=== PATIENT | female | born 1990 | race American Indian/Alaskan Native ===

== ENCOUNTER 2017-04-19 21:06 | Emergency (ER) | payer MEDICAID ==
[2017-04-19 21:14] VITALS: BP 126/68
[2017-04-19] MEDS ORDERED: Clindamycin HCl 150 MG Cap PO ONE (21:34)
[2017-04-19] MEDS ORDERED: Acetaminophen/HYDROcodone 325-10 MG Tab PO ONE (21:34)
--- NOTE | 2017-04-19 21:38 | EDM.PDOC ---
ED HPI GENERAL MEDICAL PROBLEM - General Chief Complaint: ENT Problem Stated Complaint: TOOTH PAIN [id number] Time Seen by Provider: 04/19/17 21:35 Source of Information: Reports: Patient History Limitations: Reports: No Limitations - History of Present Illness INITIAL COMMENTS - FREE TEXT/NARRATIVE: 4 days h/o right lower tooth pain. Right Upper Tooth/Teeth Pain Score (Numeric/FACES): 8 - Related Data Allergies Allergy/AdvReac Type Severity Reaction Status Date / Time No Known Allergies Allergy Verified 10/11/16 19:22 Home Meds: Home Meds . 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[place] Psychiatric History: Reports: None Endocrine/Metabolic History: Reports: None Hematologic History: Reports: None 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 Immunologic History: Reports: None Oncologic (Cancer) History: Reports: None Dermatologic History: Reports: None - Infectious Disease History Infectious Disease History: Reports: None - Past Surgical History Head Surgeries/Procedures: Reports: None GI Surgical History: Reports: Cholecystectomy, Colonoscopy Female Surgical History: Reports: Section Musculoskeletal Surgical History: Reports: None Social & Family History - Family History Family Medical History: Noncontributory - Tobacco Use Smoking Status *Q: Current Every Day Smoker Years of Tobacco use: 6 Packs/Tins Daily: 0.1 Used Tobacco, but Quit: Yes Month Tobacco Last Used: 10/22 Second Hand Smoke Exposure: No - Caffeine Use Caffeine Use: Reports: Soda, Tea - Recreational Drug Use Recreational Drug Use: No - Sexual History Sexual History: Reports: Sexually Active - Living Situation & Occupation Living situation: Reports: , with Family Occupation: Employed ED ROS ENT - Review of Systems Review Of Systems: ROS reveals no pertinent complaints other than HPI. ED EXAM, ENT - Physical Exam Exam: See Below Exam Limited By: No Limitations General Appearance: Alert, WD/WN, Mild Distress, Other (crying) Ears: Hearing Grossly Normal Mouth/Throat: Dental Abcess, Dental Pain, Dental Tenderness Head: Atraumatic Neck: Non-Tender, Full Range of Motion Respiratory/Chest: No Respiratory Distress Cardiovascular: Regular Rate, Rhythm GI/Abdominal: Soft, Non-Tender Neurological: Alert, Oriented, Normal Cognition, Normal Gait, No Motor/Sensory Deficits Psychiatric: Tearful Skin: Warm, Dry Lymphatic: No Adenopathy Course - Vital Signs Last Recorded V/S: Last Vital Signs Temp 36.7 C 04/19/17 21:12 Pulse 66 04/19/17 21:12 Resp 16 04/19/17 21:12 BP 126/68 04/19/17 21:12 Pulse Ox 100 04/19/17 21:12 - Orders/Labs/Meds Orders: Active Orders 24 hr Category Date Time Status Acetaminophen/HYDROcodone [Dickens 325-10 MG] Med 04/19/17 21:34 Once 1 tab PO ONETIME ONE Clindamycin HCl [Cleocin] Med 04/19/17 21:34 Once 150 mg PO ONETIME ONE Departure - Departure Time of Disposition: 21:36 Disposition: Home, Self-Care 01 Condition: Good Clinical Impression: Dental caries, Dental abscess - Discharge Information Instructions: Dental Abscess, [id number] Forms: ED Department Discharge Additional Instructions: 1) avoid solid foods, sodas, lyn 2) see DENTIST rx given; clindamycin 150mg qid x 40 vicidin 5/325mg bid prn x 12 - My Orders Last 24 Hours: My Active Orders 04/19/17 21:34 Acetaminophen/HYDROcodone [Dickens 325-10 MG] 1 tab PO ONETIME ONE Clindamycin HCl [Cleocin] 150 mg PO ONETIME ONE - Assessment/Plan Last 24 Hours: My Active Orders 04/19/17 21:34 Acetaminophen/HYDROcodone [Dickens 325-10 MG] 1 tab PO ONETIME ONE Clindamycin HCl [Cleocin] 150 mg PO ONETIME ONE
== END 2017-04-19 21:49 | disposition home or self-care (01) ==
LOC: DL.ED 21:06
DX: K02.9 Dental caries, unspecified (principal); K04.7 Periapical abscess without sinus; F17.210 Nicotine dependence, cigarettes, uncomplicated; G43.909 Migraine, unspecified, not intractable, without status migrainosus; Z90.49 Acquired absence of other specified parts of digestive tract
CPT/HCPCS: 99282; A9270

== ENCOUNTER 2017-11-09 18:54 | Emergency (ER) | payer MEDICAID ==
[2017-11-09 19:14] VITALS: BP 124/69
[2017-11-09] MEDS ORDERED: Amoxicillin/Clavulanate K 500-125 MG Tab PO ONE (20:19)
--- NOTE | 2017-11-09 20:24 | EDM.PDOC ---
ED HPI GENERAL MEDICAL PROBLEM - General Chief Complaint: Headache Stated Complaint: NAUSATED,FEVER, [id number] Time Seen by Provider: 11/09/17 19:55 Source of Information: Reports: Patient History Limitations: Reports: No Limitations - History of Present Illness INITIAL COMMENTS - FREE TEXT/NARRATIVE: This 27 yo female patient reports to the ED with a 5 day history of a headache, nausea and a sore throat. The patient has not been seen by a provider and is not currently being treated. 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[place] Psychiatric History: Reports: None Endocrine/Metabolic History: Reports: None Hematologic History: Reports: None 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 Immunologic History: Reports: None Oncologic (Cancer) History: Reports: None Dermatologic History: Reports: None - Infectious Disease History Infectious Disease History: Reports: None - Past Surgical History Head Surgeries/Procedures: Reports: None GI Surgical History: Reports: Cholecystectomy, Colonoscopy Female Surgical History: Reports: Section Musculoskeletal Surgical History: Reports: None Social & Family History - Family History Family Medical History: Noncontributory - Tobacco Use Smoking Status *Q: Current Every Day Smoker Years of Tobacco use: 12 Packs/Tins Daily: 0.1 Used Tobacco, but Quit: Yes Month Tobacco Last Used: 10/22 Second Hand Smoke Exposure: Yes - Caffeine Use Caffeine Use: Reports: Soda, Tea - Recreational Drug Use Recreational Drug Use: No - Sexual History Sexual History: Reports: Sexually Active - Living Situation & Occupation Living situation: Reports: , with Family Occupation: Employed ED ROS GENERAL - Review of Systems Review Of Systems: ROS reveals no pertinent complaints other than HPI. ED EXAM, GENERAL - Physical Exam Exam: See Below Exam Limited By: No Limitations General Appearance: Alert, WD/WN, Mild Distress Eye Exam: Bilateral Eye: EOMI, Normal Inspection, PERRL Ears: Normal External Exam, Normal Canal, Hearing Grossly Normal, Normal TMs Nose: Normal Inspection, Normal Mucosa, No Blood Throat/Mouth: Normal Inspection, Normal Lips, Normal Teeth, Normal Gums, Normal Oropharynx, Normal Voice, No Airway Compromise Head: Atraumatic, Normocephalic Neck: Normal Inspection, Supple, Non-Tender, Full Range of Motion Respiratory/Chest: No Respiratory Distress, Lungs Clear, Normal Breath Sounds, No Accessory Muscle Use, Chest Non-Tender Cardiovascular: Normal Peripheral Pulses, Regular Rate, Rhythm, No Edema, No Gallop, No JVD, No Murmur, No Rub GI/Abdominal: Normal Bowel Sounds, Soft, Non-Tender, No Organomegaly, No Distention, No Abnormal Bruit, No Mass (Female) Exam: Deferred Rectal (Female) Exam: Deferred Back Exam: Normal Inspection, Full Range of Motion, NT Extremities: Normal Inspection, Normal Range of Motion, Non-Tender, Normal Capillary Refill, No Pedal Edema Neurological: Alert, Oriented, CN II-XII Intact, Normal Cognition, Normal Gait, Normal Reflexes, No Motor/Sensory Deficits Psychiatric: Normal Affect, Normal Mood Skin Exam: Warm, Dry, Intact, Normal Color, No Rash Lymphatic: No Adenopathy Course - Vital Signs Last Recorded V/S: Last Vital Signs Temp 37.4 C 11/09/17 19:11 Pulse 85 11/09/17 19:11 Resp 16 11/09/17 19:11 BP 124/69 11/09/17 19:11 Pulse Ox 98 11/09/17 19:11 - Orders/Labs/Meds Orders: Active Orders 24 hr Category Date Time Status CULTURE STREP A CONFIRMATION [] Stat Lab 11/09/17 19:03 Results STREP SCRN A RAPID W CULT CONF [] Stat Lab 11/09/17 19:03 Results Labs: Laboratory Tests 11/09/17 11/09/17 Range/Units 19:53 19:53 Urine Color Yellow (YELLOW) Urine Appearance Slightly cloudy (CLEAR) Urine pH 6.5 (5.0-9.0) Ur Specific Michael 1.025 (1.005-1.030) Urine Protein Negative (NEGATIVE) Urine Glucose (UA) Negative (NEGATIVE) Urine Ketones 15 H (NEGATIVE) Urine Occult Blood Negative (NEGATIVE) Urine Nitrite Negative (NEGATIVE) Urine Bilirubin Negative (NEGATIVE) Urine Urobilinogen 0.2 (0.2-1.0) mg/dL Ur Leukocyte Esterase Trace H (NEGATIVE) Urine RBC 0-5 /HPF Urine WBC 10-20 H (0-5/HPF) /HPF Ur Epithelial Cells Moderate H /HPF Urine Bacteria Many H (0-FEW/HPF) /HPF Urine Mucus Few H /LPF Urine HCG, Qual Negative Meds: Medications Discontinued Medications Generic Name Dose Route Start Last Admin Trade Name Freq PRN Reason Stop Dose Admin Amoxicillin/Clavulanate Potassium 1 tab 11/09/17 20:19 11/09/17 20:22 Augmentin 500 Mg\125 Mg PO 11/09/17 20:20 1 tab ONETIME ONE Administration Departure - Departure Time of Disposition: 20:22 Disposition: Home, Self-Care 01 Condition: Fair Clinical Impression: UTI (urinary tract infection) Qualifiers: Urinary tract infection type: site unspecified Hematuria presence: with hematuria Qualified Code(s): N39.0 - Urinary tract infection, site not specified - Discharge Information Instructions: Urinary Tract Infection, Adult Forms: ED Department Discharge Care Plan Goals: The patient was advised of the examination and lab results during the visit. The patient was given an oral dose of Augmentin (500/125) to take 1 by mouth 2 times per day for 10 days. The patient may take Tylenol (650 mg) every 8 hours or ibuprofen (400-800 mg) every 8 hours as needed for temporary symptom relief. If the patient has any additional symptoms or concerns, the patient should follow-up with her primary care facility or return to the emergency department. - My Orders Last 24 Hours: My Active Orders 11/09/17 19:03 CULTURE STREP A CONFIRMATION [RM] Stat STREP SCRN A RAPID W CULT CONF [RM] Stat - Assessment/Plan Last 24 Hours: My Active Orders 11/09/17 19:03 CULTURE STREP A CONFIRMATION [RM] Stat STREP SCRN A RAPID W CULT CONF [RM] Stat
== END 2017-11-09 20:26 | disposition home or self-care (01) ==
LOC: DL.ED 18:54
DX: N39.0 Urinary tract infection, site not specified (principal); F17.210 Nicotine dependence, cigarettes, uncomplicated
CPT/HCPCS: 81001; 81025; 87081; 87430; 87804; 99284; A9270

== ENCOUNTER 2019-02-03 05:58 | Inpatient (IN) | payer MEDICAID ==
[~2019-02-03 05:58] MED LIST: Lactated Ringers 1,000 ML IV SCH; Oxytocin/Normal Saline 30 UNIT/500 ML BAG IV SCH; Sodium Chloride 0.9% 10 ML Syringe FLUSH PRN; Tranexamic Acid 1,000 MG in Sodium Chloride 0.9% 100 ML IV PRN
[2019-02-03] MEDS: Lactated Ringers 1,000 ML IV SCH ×4 (06:38→18:24)
[2019-02-03] MEDS ORDERED: Oxytocin/Normal Saline 60 UNIT/1,000 ML BAG ONE (06:54)
[2019-02-03] MEDS ORDERED: ceFAZolin 2 GM in Premix Bag 1 BAG IV ONE (07:00)
[2019-02-03] MEDS: Citric Acid/Sodium Citrate Solution 30 ML Cup PO ONE ×2 (07:21)
[2019-02-03] MEDS ORDERED: Misoprostol 400 MCG (4 X 100 MCG TAB) RECTAL PRN (08:34)
[2019-02-03] MEDS ORDERED: Naloxone 2 MG/2 ML Syringe IVPUSH PRN (08:34)
[2019-02-03] MEDS ORDERED: diphenhydrAMINE 50 MG/ML SDV IVPUSH PRN (08:34)
[2019-02-03] MEDS ORDERED: Carboprost Tromethamine 250 MCG/1 ML Amp IM ONE (08:34)
[2019-02-03] MEDS ORDERED: Ondansetron 4 MG/2 ML SDV IV PRN (08:34)
[2019-02-03] MEDS ORDERED: ePHEDrine 50 MG/ML SDV IVPUSH PRN (08:34)
[2019-02-03] MEDS ORDERED: Methylergonovine 0.2 MG/1 ML Amp IM PRN (08:34)
[2019-02-03] MEDS ORDERED: Acetaminophen/oxyCODONE 325-5 MG Tab PO PRN (08:34)
[2019-02-03] MEDS ORDERED: Acetaminophen 325 MG Tab PO PRN (08:34)
[2019-02-03] MEDS ORDERED: Lactated Ringers 1,000 ML IV SCH (08:45)
[2019-02-03] MEDS: Citric Acid/Sodium Citrate Solution 30 ML Cup ONE ×2 (11:45→11:46)
[2019-02-03] MEDS: Simethicone 80 MG Tab.Chew PO SCH ×4 (11:51→21:01)
[2019-02-03] MEDS: Prenatal Multivitamin with Calcium/Folic Acid/Iron Tab PO SCH (11:51)
[2019-02-03] MEDS: Ketorolac 30 MG/ML SDV IVPUSH SCH ×2 (14:14→20:03)
--- NOTE | 2019-02-03 15:04 | OR ---
DATE: 02/03/2019 PREOPERATIVE DIAGNOSES: 1. Intrauterine at 39-3/7th weeks by 11-6/7th weeks' ultrasound. 2. Previous section x2, requests repeat low-transverse section. 3. Group B streptococcus negative. 4. 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 5. No known drug allergies. 6. G4, P2-0-1-2. POSTOPERATIVE DIAGNOSES: 1. Intrauterine at 39-3/7th weeks by 11-6/7th weeks' ultrasound, delivered. 2. Previous section x2, requests repeat low-transverse section. 3. Group B streptococcus negative. 4. 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 5. No known drug allergies. 6. G4, P2-0-1-2. 7. Meconium-stained fluid. PROCEDURE PERFORMED: Non-stress test followed by repeat low-transverse section. ASSISTANTS: 1. Rose Pérez MD. 2. Sebas Swenson MS-III. ANESTHESIA: Spinal. ESTIMATED BLOOD LOSS: 500 mL. IV FLUIDS: 1800 mL. URINE OUTPUT: 400 mL and clear. START: 7:51. UTERINE INCISION: 7:55. DELIVERY: 7:56. STOP: 8:23. FINDINGS: Male, scores 9 and 9, weight pending. DESCRIPTION OF PROCEDURE IN DETAIL: After proper consent was obtained, the patient was brought to the operating room where spinal anesthetic was administered. Vega was placed in preop under sterile conditions. Abdomen was prepped and draped in a normal sterile fashion with the patient placed in supine position with left lateral tilt. A skin incision was then made over the lower abdomen in a transverse Pfannenstiel-type fashion over previous scar and this was carried down to the fascia and scored in the midline. Subcutaneous tissue was raked laterally with James traction, and fascial incision was extended in a transverse fashion using curved Oleary's. Jason clamps x2 were used to grasp the superior aspect of the fascia and the rectus muscles were dissected from the fascia using sharp and blunt technique. In a similar fashion, Jason clamps x2 were used to grasp the inferior portion of the incision and rectus and pyramidalis muscles were dissected from the fascia using sharp and blunt technique. Rectus muscles were in the midline with blunt technique. Abdominal cavity was entered in a blunt technique and the incision was extended superiorly and inferiorly with blunt technique. Sebas O large retractor was then introduced and used. Vesicouterine peritoneum was identified and incised in a transverse fashion with Metzenbaum scissors. Bladder flap was made digitally. A curvilinear incision was made on the lower uterine segment at 0755 hours. Uterus was entered sharply. Uterine incision was then extended in a transverse fashion using blunt technique. Bulging bag of water was noted and ruptured with Allis clamps and meconium-stained fluid was noted. Subsequently, vertex was delivered through the incision followed by rest of the without difficulty. Mouth and nares suctioned. Cord was doubly clamped and cut, and infant was brought over to team. Then, approximately 10 mL of cord blood was obtained for labs. Placenta was then delivered with gentle cord traction and fundal massage. Uterine cavity was cleared of all blood clots and debris with lap sponge. Guevara clamps were used to grasp the uterine incision, and this was closed in a running locked fashion and tied at lateral margins with 1-0 Vicryl. To the right of midline, there was some bleeding. A ypjuzk-hk-cntrm stitch was applied and hemostasis was reassured over this area. Left lateral portion of the incision did reveal a hematoma inferior to the incision that did have some minimal bleeding and was able to be localized onto the surface of the uterus and a wtfucw-el-foepw stitch was applied over this area using 3-0 Vicryl. Hemostasis was reassured over this area and hematoma did not enlarge thereafter. First inspection of the uterine incision revealed hemostasis. Sebas O retractor was then removed and paracolic gutters were cleared of all blood clots and debris with lap sponge. Anterior cul-de-sac was irrigated copiously, and all blood clots and debris were removed. Right of midline, there was minimal bleeding and 1 nftlxj-fk-fvyim stitch was applied and hemostasis was reassured. Left lateral portion of the incision and hematoma were evaluated, not enlarging and stable without any bleeding. Second and final inspection of the uterine incision and anterior cul-de-sac revealed hemostasis. Rectus muscles were then reapproximated in the midline with njktdc-xn-ltlcq stitch using 1-0 Vicryl. Subfascial tissues were found to be hemostatic. Fascia was closed in a running fashion and tied at lateral margins with 0 looped PDS. Subcutaneous tissue was irrigated copiously. Hemostasis was reassured. Skin was reapproximated with farooq. Sterile Aquacel dressing was applied. The uterine fundus was firm and massaged at the conclusion of this case -2 below umbilicus. No immediate complications were noted. Sponge, lap, and needle counts were correct. The patient received 2 g of Ancef preoperatively, Pitocin per protocol, and will receive Toradol at the conclusion of case for pain control. Mother and infant are currently stable at the time of dictation. [facility] /[id number]
[2019-02-03] MEDS ORDERED: Dexamethasone 4 MG/ML SDV IV ONE (15:58)
[2019-02-03] MEDS ORDERED: ePHEDrine 50 MG/ML SDV IV ONE (15:58)
[2019-02-03] MEDS ORDERED: Ondansetron 4 MG/2 ML SDV IV ONE (15:58)
[2019-02-03] MEDS ORDERED: Lactated Ringers 1,000 ML IV ONE (15:58)
[2019-02-03] MEDS ORDERED: Ketorolac 30 MG/ML SDV IVPUSH ONE (15:58)
[2019-02-03] MEDS ORDERED: Morphine PF 1 MG/ML Amp ONE (15:58)
[2019-02-03] MEDS: Docusate Sodium 100 MG Cap PO PRN (21:00)
[2019-02-04] MEDS: Acetaminophen/oxyCODONE 325-5 MG Tab PO PRN ×5 (01:58→21:59)
[2019-02-04] MEDS: Ketorolac 30 MG/ML SDV IVPUSH SCH (01:58)
--- NOTE | 2019-02-04 08:29 | PN ---
DATE: 02/04/2019 Postoperative day 1. SUBJECTIVE: The patient is tolerating p.o., ambulating and passing flatus. Vega was just removed this morning, and she was able to urinate upon removal. She endorses a minimal amount of bleeding and no contraction like pain. She does have some incisional pain and that pain is significantly decreased with her Percocet. She denies any fever, shortness of breath, chest pains, visual changes, or headaches. OBJECTIVE: Vital Signs: Temperature 99, pulse 85, blood pressure 111/58, and respiratory rate 16, O2 saturation 98%. Lungs: Clear to auscultation bilaterally. Heart: S1 and S2. Regular rate and rhythm. Abdomen: Firm uterus, negative 2 below umbilicus. Aquacel dressing is clean and dry. Nothing saturating. Extremities: Compression stockings are on, no swelling. LABORATORY DATA: Red blood cells 3.91, down from 4.96 on admission; hemoglobin 11.3, down from 14.3 on admission; hematocrit 34.6, down from 42.8 on admission; platelets 178, down from 203 on admission. ASSESSMENT AND PLAN: 1. Postop day 1 status post repeat low-transverse section. 2. Continue with routine cares. The patient was seen by myself and Dr. Redmond. Assessment and plan are under the advisement of Dr. Redmond. seen and agreed-KATHRYN Swenson MS-III [facility] /[id number] MTDD
--- NOTE | 2019-02-04 11:02 | OBOUT ---
DATE: 02/03/2019 TIME OF NST: 6:30 to 6:50. REASON FOR NST: 1. Intrauterine at 39-plus weeks. 2. Previous section x2, requests repeat low-transverse section. 3. GBS negative. 4. 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 5. No known drug allergies. 6. G4, P2-0-1-2. NST INTERPRETATION: During this time period, heart tone baseline is approximately at 135 and there are at least two 15 x 15 beats per minute accelerations, making this strip reactive. It is also noted to be reassuring. Tocometer reveals potential 4 to 5 contractions felt by the patient, described as cramping. ASSESSMENT: 1. Nonstress test - reactive, reassuring. 2. Tocometer with contractions. PLAN: Blood pressure is 118/71, heart rate 88, temperature 98.3. Please see H and P to be updated and placed in Epic in the chart. Changes include her having contractions now described as cramps felt in the lower abdomen. Her vital signs as above and the nonstress test as above. Otherwise, history and physical done in conjunction with RAJENDRA EckertIII, seen and agreed. Review of systems was, otherwise, fully reviewed and felt to be noncontributory other than the above as well as records were called for, reviewed, and supplemented by the patient's history in regard to her history and physical. We will proceed to the OR as soon as the crew is ready and available. [facility] /[id number]
[2019-02-04] MEDS: Simethicone 80 MG Tab.Chew PO SCH ×4 (11:17→21:58)
[2019-02-04] MEDS: Prenatal Multivitamin with Calcium/Folic Acid/Iron Tab PO SCH (11:17)
[2019-02-04] MEDS: Ibuprofen 800 MG Tab PO PRN ×2 (11:18→19:49)
[2019-02-04] MEDS: Docusate Sodium 100 MG Cap PO PRN ×2 (11:18→19:49)
[2019-02-05] MEDS: Acetaminophen/oxyCODONE 325-5 MG Tab PO PRN ×5 (02:32→21:21)
[2019-02-05] MEDS: Ibuprofen 800 MG Tab PO PRN ×2 (05:19→17:17)
[2019-02-05] MEDS: Prenatal Multivitamin with Calcium/Folic Acid/Iron Tab PO SCH (08:20)
[2019-02-05] MEDS: Docusate Sodium 100 MG Cap PO PRN ×2 (08:20→21:20)
[2019-02-05] MEDS: Simethicone 80 MG Tab.Chew PO SCH ×4 (08:21→21:20)
--- NOTE | 2019-02-05 10:57 | PN ---
DATE: 02/05/2019 Postoperative day #2. SUBJECTIVE: The patient is tolerating p.o., ambulating, and passing flatus. She is also urinating. She has not had a bowel movement. She endorses a minimal amount of bleeding. She is having incisional pain. It is decreased with her Percocet. She denies any fever, shortness of breath, chest pain, visual changes, or headaches. OBJECTIVE: Vital Signs: Temperature 98.1, pulse 79, blood pressure 115/59, and respiratory rate 16. Lungs: Clear to auscultation bilaterally. Heart: S1 and S2. Regular rate and rhythm. Abdomen: Firm. Uterus negative 2 below the umbilicus. Aquacel dressing is clean and dry, nothing saturating. Extremities: No swelling. LABORATORY DATA: RBC 3.96, hemoglobin 11.6, hematocrit 35.5, platelets 189. ASSESSMENT AND PLAN: 1. Postoperative day #2 status post repeat low-transverse . 2. Continue with routine cares. The patient was seen by myself and Dr. Redmond. Assessment and plan are under advisement of Dr. Redmond. seen and agreed-WEIW Sebas Swenson, MS-III [facility] /[id number] ROHAN
[2019-02-06] MEDS: Ibuprofen 800 MG Tab PO PRN (02:11)
[2019-02-06] MEDS: Acetaminophen/oxyCODONE 325-5 MG Tab PO PRN ×2 (02:11→06:31)
[2019-02-06] MEDS: Prenatal Multivitamin with Calcium/Folic Acid/Iron Tab PO SCH (08:20)
[2019-02-06] MEDS: Simethicone 80 MG Tab.Chew PO SCH (08:21)
[2019-02-06] MEDS: Docusate Sodium 100 MG Cap PO PRN (08:21)
--- NOTE | 2019-02-06 09:02 | PN ---
DATE: 02/06/2019 Postop day 3. SUBJECTIVE: The patient is tolerating p.o., ambulating, and passing flatus. Urinating. She has not had a bowel movement. Endorses minimal bleeding. Incisional pain was well managed with Percocet and Tylenol. Denies any fevers, shortness of breath, chest pain, visual changes, or headaches. OBJECTIVE: Vital Signs: Temperature 98, pulse 85, blood pressure 117/66, and respiratory rate 16. Lungs: Clear to auscultation bilaterally. Heart: S1 and S2. Regular rate and rhythm. Abdomen: Firm uterus, 2 below umbilicus. Aquacel dressing clean, dry, nothing saturating. Extremities: No swelling. Skin: Contact dermatitis near umbilicus. The patient says it is from the hospital underwear. LABORATORY DATA: No new labs taken. See [facility] for labs over hospital course. ASSESSMENT AND PLAN: 1. Postoperative day 3 status post repeat low-transverse . 2. Planning on discharge today. The patient was seen by myself and Dr. Redmond. Assessment and plan are under advisement of Dr. Redmond. seen and agreed-WEIW Sebas Swenson, MS-III [facility] /[id number] ROHAN
[2019-02-06 09:17] VITALS: BP 122/71
--- NOTE | 2019-02-06 10:26 | DISCH ---
ADMITTING DIAGNOSES: 1. Intrauterine at 39 and 3/7th weeks by 11 and 6/7th weeks ultrasound. 2. Previous x2, requests repeat low transverse section. 3. Group B streptococcus negative. 4. 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 5. No known drug allergies. 6. G4, P2-0-1-2. DISCHARGE DIAGNOSES: 1. Intrauterine at 39 and 3/7th weeks by 11 and 6/7th weeks ultrasound - delivered. 2. Previous x2, requests repeat low transverse section. 3. Group B streptococcus negative. 4. 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 5. No known drug allergies. 6. G4, P2-0-1-2. 7. Meconium-stained fluid. 8. Anemia of acute blood loss, hemoglobin dropping from 14.3 to 11.6. PROCEDURE PERFORMED: NST, followed by repeat low transverse section on date of admission per Dr. Redmond. HISTORY OF PRESENT ILLNESS: Please see H and P. SUMMARY OF HOSPITAL COURSE: The patient was admitted on the above date with the above diagnoses, underwent repeat low transverse under spinal with an EBL 500 mL yielding a male with scores of 9 and 9, weighing 7 pounds 8 ounces. Please see operative note for further details. Postoperative days #1 and 2, please see progress notes done in conjunction with RAKEL Eckert. Postoperative day #3, date of discharge, please see RAKEL Eckert, note seen and agreed. CONDITION ON DISCHARGE COMPARED TO CONDITION ON ADMISSION: Improved. DISCHARGE INSTRUCTIONS: 1. Diet as tolerated. 2. Activity: No lifting more than 20 pounds. No sit-ups, straining, and pelvic rest for the next 6 weeks with immediate return to fertility discussed with the patient. 3. Reasons to return or go to the emergency room were discussed with the patient in detail including, but not limited to, temperature greater than 100.4, foul-smelling discharge, red hot tender breasts, increased vaginal bleeding or increasing pain, drainage, or redness around the incision. DISCHARGE MEDICATIONS: 1. Sjbd-vwi-fvvdlgh Tylenol or ibuprofen for pain. 2. vitamins x6 weeks. 3. Percocet 5/325 one to two q.6 hours p.r.n., #15, no refills. Discussed the use of this medication, adverse and unwanted effects, as well as precautions with driving. FOLLOWUP: Follow up on 02/10/2019, with her baby and for staple removal. The patient understands and agrees with the above treatment plan. I did discuss with her reasons to return or go to the emergency room in regard to her infant as well as ramifications of not following up. [facility] /[id number]
== END 2019-02-06 10:00 | disposition home or self-care (01) | DRG 787 ==
LOC: DL.OB 05:58 → OBSVTOIN 07:56 → EEVIPCON 08:00
PROVIDERS: ADMIT Family Medicine; ATTEND Family Medicine
PROC: 10D00Z1 Extraction of Products of Conception, Low, Open Approach (ICD-10-PCS; principal; 2019-02-03)
PROC: 4A1HXCZ Monitoring of Products of Conception, Cardiac Rate, External Approach (ICD-10-PCS; 2019-02-03)
DX: O34.211 Maternal care for low transverse scar from previous cesarean delivery (principal); D62 Acute posthemorrhagic anemia; O77.0 Labor and delivery complicated by meconium in amniotic fluid; O90.81 Anemia of the puerperium; Z3A.39 39 weeks gestation of pregnancy; Z37.0 Single live birth
CPT/HCPCS: 36415; 51702; 85025; 86850; 86900; 86901; 94010; A9270-GY; J0690; J1100; J1885; J2274; J2405; J2590; J7120

== ENCOUNTER 2019-03-21 11:34 | Emergency (ER) | payer MEDICAID ==
[2019-03-21] MEDS ORDERED: Lactated Ringers 1,000 ML IV ONE (12:15)
[2019-03-21] MEDS ORDERED: Sodium Chloride 0.9% 10 ML Syringe FLUSH PRN (12:15)
[2019-03-21] MEDS ORDERED: Ondansetron 4 MG/2 ML SDV IV ONE (12:15)
[2019-03-21] MEDS ORDERED: Famotidine 20 MG/2 ML SDV IVPUSH ONE (12:48)
[2019-03-21 13:13] LABS: ANION GAP 17.7; CHLORIDE,CL 102 mmol/L (101-111); SODIUM,NA 134 mmol/L (135-145)
[2019-03-21] MEDS ORDERED: Iopamidol 612 MG/ML 75 ML Bottle IVPUSH ONE (13:18)
[2019-03-21] MEDS ORDERED: HYDROmorphone 1 MG/ML Syringe IVPUSH ONE (13:19)
[2019-03-21 14:25] VITALS: BP 114/57
--- NOTE | 2019-03-21 17:40 | EDM.PDOC ---
Scribed by Maye Wei 03/21/19 1502 for Radha Najera NP ED HPI GENERAL MEDICAL PROBLEM - General Chief Complaint: Abdominal Pain Stated Complaint: ABD PAIN [id number] Time Seen by Provider: 03/21/19 12:39 Source of Information: Reports: Patient, RN, RN Notes Reviewed History Limitations: Reports: No Limitations - History of Present Illness INITIAL COMMENTS - FREE TEXT/NARRATIVE: Patient presents to ER with complaint of sharp stomach/epigastric pain. She has had nausea, vomiting and diarrhea x2 days. She last ate last night. She had gallbladder out x2 years ago. She tool Tylenol without help. States no chances of . LMP was last week. She still has her appendix. She has had chills. No fever. Rates her pain 8/10. Onset: Gradual Duration: Getting Worse Location: Reports: Abdomen Quality: Reports: Ache Severity: Moderate Improves with: Reports: None Worsens with: Reports: None Associated Symptoms: Reports: No Other Symptoms Epigastric Pain Score (Numeric/FACES): 7 - Related Data Allergies Allergy/AdvReac Type Severity Reaction Status Date / Time No Known Allergies Allergy Verified 03/21/19 12:10 Home Meds: Home Meds #103/Iron Fumarate/Fa [ ] 1 tab PO DAILY 02/02/19 [ History] Acetaminophen [Tylenol] 650 mg PO Q6HR PRN tablet 02/06/19 [Rx] Docusate Sodium [Colace] 100 mg PO Q12HR PRN cap 02/06/19 [Rx] Ibuprofen [Motrin] 800 mg PO Q8H PRN tablet 02/06/19 [Rx] Vit with Ca/FA/Iron [ Plus Iron] 1 each PO DAILY tablet [Rx] Past Medical History - Past Health History Medical/Surgical History: Denies Medical/Surgical History HEENT History: Reports: None Cardiovascular History: Reports: None Respiratory History: Reports: None Gastrointestinal History: Reports: Cholelithiasis Genitourinary History: Reports: UTI, Recurrent 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: Musculoskeletal History: Reports: None Neurological History: Reports: Migraines 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[place] Psychiatric History: Reports: None Endocrine/Metabolic History: Reports: None Hematologic History: Reports: None 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 Immunologic History: Reports: None Oncologic (Cancer) History: Reports: None Dermatologic History: Reports: None - Infectious Disease History Infectious Disease History: Reports: None - Past Surgical History Head Surgeries/Procedures: Reports: None GI Surgical History: Reports: Cholecystectomy, Colonoscopy Female Surgical History: Reports: Section Musculoskeletal Surgical History: Reports: None Social & Family History - Family History Family Medical History: Noncontributory - Tobacco Use Smoking Status *Q: Never Smoker - Caffeine Use Caffeine Use: Reports: Coffee - Recreational Drug Use Recreational Drug Use: No - Sexual History Sexual History: Reports: Sexually Active - Living Situation & Occupation Living situation: Reports: , with Family Occupation: Employed ED ROS GENERAL - Review of Systems Review Of Systems: ROS reveals no pertinent complaints other than HPI. ED EXAM, GI/ABD - Physical Exam Exam: See Below Exam Limited By: No Limitations General Appearance: Anxious (and crying) Eyes: Bilateral: Normal Appearance Ears: Normal External Exam, Normal Canal, Hearing Grossly Normal, Normal TMs Nose: Normal Inspection, Normal Mucosa, No Blood Throat/Mouth: Normal Inspection, Normal Lips, Normal Teeth, Normal Gums, Normal Oropharynx, Normal Voice, No Airway Compromise Head: Atraumatic, Normocephalic Neck: Normal Inspection, Supple, Non-Tender, Full Range of Motion Respiratory/Chest: No Respiratory Distress, Lungs Clear, Normal Breath Sounds, No Accessory Muscle Use, Chest Non-Tender Cardiovascular: Normal Peripheral Pulses, Regular Rate, Rhythm, No Edema, No Gallop, No JVD, No Murmur, No Rub GI/Abdominal Exam: Normal Bowel Sounds, Soft, Non-Tender, No Organomegaly, No Distention, No Abnormal Bruit, No Mass, Pelvis Stable (Female) Exam: Deferred Rectal (Female) Exam: Deferred Back Exam: Normal Inspection, Full Range of Motion, NT Extremities: Normal Inspection, Normal Range of Motion, Non-Tender, Normal Capillary Refill, No Pedal Edema Neurological: Alert, Oriented, CN II-XII Intact, Normal Cognition, Normal Gait, Normal Reflexes, No Motor/Sensory Deficits Psychiatric: Anxious (and crying) Skin Exam: Warm, Dry, Intact, Normal Color, No Rash Lymphatic: No Adenopathy Course - Vital Signs Last Recorded V/S: Last Vital Signs Temp 97.2 F 03/21/19 12:10 Pulse 75 03/21/19 14:24 Resp 16 03/21/19 14:24 BP 114/57 L 03/21/19 14:24 Pulse Ox 100 03/21/19 14:24 - Orders/Labs/Meds Orders: Active Orders 24 hr Category Date Time Status Peripheral IV Care [RC] . DIRECTED Care 03/21/19 12:15 Active Sodium Chloride 0.9% [Saline Flush] Med 03/21/19 12:15 Active 10 ml FLUSH ASDIRECTED PRN Peripheral IV Insertion Adult [OM.PC] Stat Oth 03/21/19 12:15 Ordered Medication Orders Sodium Chloride (Saline Flush) 10 ml FLUSH ASDIRECTED PRN PRN Reason: Keep Vein Open Last Admin: 03/21/19 12:25 Dose: 10 ml Labs: Laboratory Tests 03/21/19 03/21/19 03/21/19 Range/Units 12:22 12:22 12:55 WBC 12.4 H (5.0-10.0) 10^3/uL RBC 5.30 (4.2-5.4) 10^6/uL Hgb 15.6 D (12.0-16.0) g/dL Hct 45.3 (37.0-47.0) % MCV 85.5 D (80-100) fL MCH 29.4 (27.0-34.0) pg MCHC 34.4 (33.0-35.0) g/dL Plt Count 331 D (150-450) 10^3/uL Neut % (Auto) 72.5 (42.2-75.2) % Lymph % (Auto) 20.1 L (20.5-50.1) % [place] % (Auto) 5.2 (2-8) % Eos % (Auto) 2.0 (1.0-3.0) % Baso % (Auto) 0.2 (0.0-1.0) % Sodium 134 L (135-145) mmol/L Potassium 4.7 D (3.6-5.0) mmol/L Chloride 102 (101-111) mmol/L Carbon Dioxide 19.0 L (21.0-31.0) mmol/L Anion Gap 17.7 BUN 14 (7-18) mg/dL Creatinine 0.7 (0.6-1.3) mg/dL Est Cr Clr Drug Dosing 100.74 mL/min Estimated GFR (MDRD) > 60 BUN/Creatinine Ratio 20.00 Glucose 98 (74-105) mg/dL Calcium 9.5 (8.4-10.2) mg/dl Total Bilirubin 1.2 H (0.2-1.0) mg/dL AST 79 H (10-42) IU/L ALT 55 (10-60) IU/L Alkaline Phosphatase 106 (42-121) IU/L Total Protein 9.0 H (6.7-8.2) g/dl Albumin 4.8 (3.2-5.5) g/dl Globulin 4.2 Albumin/Globulin Ratio 1.14 Amylase 73 (28-100) U/L Lipase 31 (22-51) U/L Urine Color Yellow (YELLOW) Urine Appearance Cloudy (CLEAR) Urine pH 5.0 (5.0-9.0) Ur Specific [place] 1.015 (1.005-1.030) Urine Protein Trace H (NEGATIVE) Urine Glucose (UA) Negative (NEGATIVE) Urine Ketones Negative (NEGATIVE) Urine Occult Blood Negative (NEGATIVE) Urine Nitrite Negative (NEGATIVE) Urine Bilirubin Negative (NEGATIVE) Urine Urobilinogen 0.2 (0.2-1.0) mg/dL Ur Leukocyte Esterase Negative (NEGATIVE) Urine RBC 0-5 /HPF Urine WBC 0-5 (0-5/HPF) /HPF Ur Epithelial Cells Many H (NOT SEEN) /HPF Amorphous Sediment Few (NOT SEEN) /HPF Urine Bacteria Rare (0-FEW/HPF) /HPF Urine Mucus Moderate H (NOT SEEN) /LPF Urine HCG, Qual 03/21/19 Range/Units 12:55 WBC (5.0-10.0) 10^3/uL RBC (4.2-5.4) 10^6/uL Hgb (12.0-16.0) g/dL Hct (37.0-47.0) % MCV (80-100) fL MCH (27.0-34.0) pg MCHC (33.0-35.0) g/dL Plt Count (150-450) 10^3/uL Neut % (Auto) (42.2-75.2) % Lymph % (Auto) (20.5-50.1) % [place] % (Auto) (2-8) % Eos % (Auto) (1.0-3.0) % Baso % (Auto) (0.0-1.0) % Sodium (135-145) mmol/L Potassium (3.6-5.0) mmol/L Chloride (101-111) mmol/L Carbon Dioxide (21.0-31.0) mmol/L Anion Gap BUN (7-18) mg/dL Creatinine (0.6-1.3) mg/dL Est Cr Clr Drug Dosing mL/min Estimated GFR (MDRD) BUN/Creatinine Ratio Glucose (74-105) mg/dL Calcium (8.4-10.2) mg/dl Total Bilirubin (0.2-1.0) mg/dL AST (10-42) IU/L ALT (10-60) IU/L Alkaline Phosphatase (42-121) IU/L Total Protein (6.7-8.2) g/dl Albumin (3.2-5.5) g/dl Globulin Albumin/Globulin Ratio Amylase (28-100) U/L Lipase (22-51) U/L Urine Color (YELLOW) Urine Appearance (CLEAR) Urine pH (5.0-9.0) Ur Specific [place] (1.005-1.030) Urine Protein (NEGATIVE) Urine Glucose (UA) (NEGATIVE) Urine Ketones (NEGATIVE) Urine Occult Blood (NEGATIVE) Urine Nitrite (NEGATIVE) Urine Bilirubin (NEGATIVE) Urine Urobilinogen (0.2-1.0) mg/dL Ur Leukocyte Esterase (NEGATIVE) Urine RBC /HPF Urine WBC (0-5/HPF) /HPF Ur Epithelial Cells (NOT SEEN) /HPF Amorphous Sediment (NOT SEEN) /HPF Urine Bacteria (0-FEW/HPF) /HPF Urine Mucus (NOT SEEN) /LPF Urine HCG, Qual Negative Meds: Medications Generic Name Dose Route Start Last Admin Trade Name Freq PRN Reason Stop Dose Admin Sodium Chloride 10 ml 03/21/19 12:15 03/21/19 12:25 Saline Flush FLUSH 10 ml ASDIRECTED PRN Administration Keep Vein Open Discontinued Medications Generic Name Dose Route Start Last Admin Trade Name Freq PRN Reason Stop Dose Admin Famotidine 20 mg 03/21/19 12:48 03/21/19 12:52 Pepcid IVPUSH 03/21/19 12:49 20 mg ONETIME ONE Administration Hydromorphone HCl 1 mg 03/21/19 13:19 03/21/19 13:23 Dilaudid IVPUSH 03/21/19 13:20 1 mg ONETIME ONE Administration Lactated Ringer's 1,000 mls @ 999 mls/hr 03/21/19 12:15 03/21/19 12:25 Ringers, Lactated IV 03/21/19 13:15 999 mls/hr .BOLUS ONE Administration Iopamidol 75 ml 03/21/19 13:18 03/21/19 13:32 Isovue-300 (61%) IVPUSH 03/21/19 13:19 75 ml ONETIME ONE Administration Ondansetron HCl 4 mg 03/21/19 12:15 03/21/19 12:25 Zofran IV 03/21/19 12:16 4 mg ONETIME ONE Administration - Radiology Interpretation Free Text/Narrative:: CT of Abdomen/Pelvis with contrast: FINDINGS: ABDOMEN: Liver: Normal. No mass. Gallbladder and bile ducts: The patient is noted to be status post cholecystectomy. Pancreas: Normal. No ductal dilation. Spleen: Normal. No splenomegaly. Adrenals: Normal. No mass. Kidneys and ureters: A 3 mm nonobstructing stone is noted within each kidney. No stones are identified along the course of either ureter. There is no evidence of hydronephrosis or ureter. Stomach and bowel: Liquefied stool contents are noted throughout the ascending, transverse and descending colon, without significant associated colonic wall thickening or pericolonic fat stranding. There is no evidence of bowel obstruction. Appendix: The appendix is normal in appearance. PELVIS: Bladder: Unremarkable as visualized. Reproductive: Unremarkable as visualized. ABDOMEN and PELVIS: Intraperitoneal space: Normal. No free air. No significant fluid collection. Bones/joints: No acute fracture. No dislocation. Soft tissues: Postoperative changes are noted in the anterior pelvic wall. Vasculature: Normal. No abdominal aortic aneurysm. Lymph nodes: Normal. No enlarged lymph nodes. IMPRESSION: 1. No acute findings. 2. Liquefied stool contents are noted throughout the colon without significant associated pericolonic inflammatory changes. 3. Bilateral nonobstructing renal calculi. No evidence of ureteral calculi or hydronephrosis. See rad report Departure - Departure Time of Disposition: 15:02 Disposition: Home, Self-Care 01 Condition: Fair Clinical Impression: Gastroenteritis Abdominal pain Qualifiers: Abdominal location: upper abdomen, unspecified Qualified Code(s): R10.10 - Upper abdominal pain, unspecified - Discharge Information *PRESCRIPTION DRUG MONITORING PROGRAM REVIEWED*: No *COPY OF PRESCRIPTION DRUG MONITORING REPORT IN PATIENT CINDY: No Instructions: Viral Gastroenteritis, Adult, [id number], Abdominal Pain, Adult , [id number], Nausea and Vomiting, Adult, [id number], Food Choices to Help Relieve Diarrhea, Adult Forms: ED Department Discharge Additional Instructions: Try to drink plenty of fluids, small sips frequently May use Imodium (Loperamide) over the counter as directed for diarrhea Follow up with your primary care facility if no improvement - My Orders Last 24 Hours: My Active Orders 03/21/19 12:15 Peripheral IV Care [RC] . DIRECTED Sodium Chloride 0.9% [Saline Flush] 10 ml FLUSH ASDIRECTED PRN Peripheral IV Insertion Adult [OM.PC] Stat - Assessment/Plan Last 24 Hours: My Active Orders 03/21/19 12:15 Peripheral IV Care [RC] . DIRECTED Sodium Chloride 0.9% [Saline Flush] 10 ml FLUSH ASDIRECTED PRN Peripheral IV Insertion Adult [OM.PC] Stat I have read and agree with the documentation that has been completed regarding this visit. By signing this record, I attest that the documentation was completed in my physical presence and is an accurate record of the encounter.
== END 2019-03-21 15:09 | disposition home or self-care (01) ==
LOC: DL.ED 11:34
DX: K52.9 Noninfective gastroenteritis and colitis, unspecified (principal); Z90.49 Acquired absence of other specified parts of digestive tract
CPT/HCPCS: 36415; 74177; 80053; 81001; 81025; 82150; 83690; 85025; 96361; 96374; 96375; 99284; J1170; J2405; J3490; J7120; Q9967

== ENCOUNTER 2019-10-03 07:30 | Emergency (ER) | payer MEDICAID, OTHER ==
--- NOTE | 2019-10-03 07:45 | EDM.PDOC ---
ED HPI GENERAL MEDICAL PROBLEM - General Chief Complaint: Abdominal Pain Stated Complaint: THROWING UP/STOMACH PAINS Time Seen by Provider: 10/03/19 07:45 Source of Information: Reports: Patient, RN, RN Notes Reviewed History Limitations: Reports: No Limitations - History of Present Illness INITIAL COMMENTS - FREE TEXT/NARRATIVE: patient presents to ER with complaint of sharp epigastric pain. Patient states she has had vomiting and diarrhea for the past 2 days. Patient states this morning after she vomited she started having a very sharp pain in the stomach. Patient states gallbladder has been removed. Admits to chills and fever, nausea , vomiting, diarrhea. Denies chest pains or shortness of breath. States LMP was 1 week ago, denies chances of . Onset: Gradual Duration: Constant, Getting Worse Location: Reports: Abdomen Epigastric Pain Score (Numeric/FACES): 7 - Related Data Allergies Allergy/AdvReac Type Severity Reaction Status Date / Time No Known Allergies Allergy Verified 10/03/19 07:37 Home Meds: Home Meds . 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[place] Psychiatric History: Reports: None Endocrine/Metabolic History: Reports: None Hematologic History: Reports: None 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 Immunologic History: Reports: None Oncologic (Cancer) History: Reports: None Dermatologic History: Reports: None - Infectious Disease History Infectious Disease History: Reports: None - Past Surgical History Head Surgeries/Procedures: Reports: None GI Surgical History: Reports: Cholecystectomy, Colonoscopy Female Surgical History: Reports: Section Musculoskeletal Surgical History: Reports: None Social & Family History - Family History Family Medical History: Noncontributory - Tobacco Use Smoking Status *Q: Never Smoker Second Hand Smoke Exposure: No - Caffeine Use Caffeine Use: Reports: Coffee - Recreational Drug Use Recreational Drug Use: No - Sexual History Sexual History: Reports: Sexually Active - Living Situation & Occupation Living situation: Reports: , with Family Occupation: Employed ED ROS GENERAL - Review of Systems Review Of Systems: Comprehensive ROS is negative, except as noted in HPI. ED EXAM, GI/ABD - Physical Exam Exam: See Below Exam Limited By: No Limitations General Appearance: Alert, WD/WN, Moderate Distress Eyes: Bilateral: Normal Appearance, EOMI Ears: Normal External Exam, Hearing Grossly Normal Nose: Normal Inspection Throat/Mouth: Normal Inspection, Normal Voice, No Airway Compromise Head: Atraumatic, Normocephalic Neck: Normal Inspection, Supple, Non-Tender, Full Range of Motion Respiratory/Chest: No Respiratory Distress, Lungs Clear, Normal Breath Sounds, No Accessory Muscle Use, Chest Non-Tender Cardiovascular: Normal Peripheral Pulses, Regular Rate, Rhythm, No Edema, No Gallop, No JVD, No Murmur, No Rub GI/Abdominal Exam: Normal Bowel Sounds, No Organomegaly, No Distention, No Abnormal Bruit, No Mass, Pelvis Stable, Tender (epigastrium) (Female) Exam: Deferred Rectal (Female) Exam: Deferred Back Exam: Normal Inspection, Full Range of Motion, NT Extremities: Normal Inspection, Normal Range of Motion, Non-Tender, Normal Capillary Refill, No Pedal Edema Neurological: Alert, Oriented, CN II-XII Intact, Normal Cognition, Normal Gait, Normal Reflexes, No Motor/Sensory Deficits Psychiatric: Anxious, Tearful Skin Exam: Warm, Dry, Intact, Normal Color, No Rash Lymphatic: No Adenopathy Course - Vital Signs Last Recorded V/S: Last Vital Signs Temp 96.8 F 10/03/19 07:33 Pulse 93 10/03/19 07:33 Resp 18 10/03/19 07:33 BP 125/77 10/03/19 07:33 Pulse Ox 100 10/03/19 07:33 - Orders/Labs/Meds Orders: Active Orders 24 hr Category Date Time Status EKG Documentation Completion [RC] STAT Care 10/03/19 07:52 Active Peripheral IV Care [RC] . DIRECTED Care 10/03/19 07:54 Active Abdomen Pelvis w Cont [CT] Urgent Exams 10/03/19 08:35 Taken CULTURE URINE [RM] Stat Lab 10/03/19 08:40 Received Sodium Chloride 0.9% [Saline Flush] Med 10/03/19 07:54 Active 10 ml FLUSH ASDIRECTED PRN Peripheral IV Insertion Adult [OM.PC] Stat Oth 10/03/19 07:51 Ordered Medication Orders Sodium Chloride (Saline Flush) 10 ml FLUSH ASDIRECTED PRN PRN Reason: Keep Vein Open Last Admin: 10/03/19 08:12 Dose: 10 ml Labs: Laboratory Tests 10/03/19 10/03/19 10/03/19 Range/Units 08:05 08:05 08:40 WBC 12.0 H (5.0-10.0) 10^3/uL RBC 5.56 H (4.2-5.4) 10^6/uL Hgb 16.2 H (12.0-16.0) g/dL Hct 45.5 (37.0-47.0) % MCV 81.8 D (80-100) fL MCH 29.1 (27.0-34.0) pg MCHC 35.6 H (33.0-35.0) g/dL Plt Count 327 (150-450) 10^3/uL Neut % (Auto) 66.0 (42.2-75.2) % Lymph % (Auto) 25.8 (20.5-50.1) % [place] % (Auto) 5.2 (2-8) % Eos % (Auto) 2.8 (1.0-3.0) % Baso % (Auto) 0.2 (0.0-1.0) % Sodium 137 (135-145) mmol/L Potassium 3.5 L (3.6-5.0) mmol/L Chloride 106 (101-111) mmol/L Carbon Dioxide 17.0 L (21.0-31.0) mmol/L Anion Gap 17.5 BUN 16 (7-18) mg/dL Creatinine 0.6 (0.6-1.3) mg/dL Est Cr Clr Drug Dosing 116.50 mL/min Estimated GFR (MDRD) > 60 BUN/Creatinine Ratio 26.66 Glucose 108 H (74-105) mg/dL Calcium 9.2 (8.4-10.2) mg/dl Total Bilirubin 0.7 (0.2-1.0) mg/dL AST 72 H (10-42) IU/L ALT 67 H (10-60) IU/L Alkaline Phosphatase 87 (42-121) IU/L Total Protein 8.9 H (6.7-8.2) g/dl Albumin 5.0 (3.2-5.5) g/dl Globulin 3.9 Albumin/Globulin Ratio 1.28 Amylase 87 (28-100) U/L Lipase 32 (22-51) U/L Urine Color Yellow (YELLOW) Urine Appearance Cloudy (CLEAR) Urine pH 5.5 (5.0-9.0) Ur Specific [place] >= 1.030 (1.005-1.030) Urine Protein 100 H (NEGATIVE) Urine Glucose (UA) Negative (NEGATIVE) Urine Ketones Negative (NEGATIVE) Urine Occult Blood Trace-intact H (NEGATIVE) Urine Nitrite Negative (NEGATIVE) Urine Bilirubin Small H (NEGATIVE) Urine Urobilinogen 0.2 (0.2-1.0) mg/dL Ur Leukocyte Esterase Negative (NEGATIVE) Urine RBC 5-10 H /HPF Urine WBC 0-5 (0-5/HPF) /HPF Ur Epithelial Cells Moderate H (NOT SEEN) /HPF Amorphous Sediment Few (NOT SEEN) /HPF Urine Bacteria Few (0-FEW/HPF) /HPF Urine Mucus Moderate H (NOT SEEN) /LPF Urine HCG, Qual 10/03/19 Range/Units 08:40 WBC (5.0-10.0) 10^3/uL RBC (4.2-5.4) 10^6/uL Hgb (12.0-16.0) g/dL Hct (37.0-47.0) % MCV (80-100) fL MCH (27.0-34.0) pg MCHC (33.0-35.0) g/dL Plt Count (150-450) 10^3/uL Neut % (Auto) (42.2-75.2) % Lymph % (Auto) (20.5-50.1) % [place] % (Auto) (2-8) % Eos % (Auto) (1.0-3.0) % Baso % (Auto) (0.0-1.0) % Sodium (135-145) mmol/L Potassium (3.6-5.0) mmol/L Chloride (101-111) mmol/L Carbon Dioxide (21.0-31.0) mmol/L Anion Gap BUN (7-18) mg/dL Creatinine (0.6-1.3) mg/dL Est Cr Clr Drug Dosing mL/min Estimated GFR (MDRD) BUN/Creatinine Ratio Glucose (74-105) mg/dL Calcium (8.4-10.2) mg/dl Total Bilirubin (0.2-1.0) mg/dL AST (10-42) IU/L ALT (10-60) IU/L Alkaline Phosphatase (42-121) IU/L Total Protein (6.7-8.2) g/dl Albumin (3.2-5.5) g/dl Globulin Albumin/Globulin Ratio Amylase (28-100) U/L Lipase (22-51) U/L Urine Color (YELLOW) Urine Appearance (CLEAR) Urine pH (5.0-9.0) Ur Specific [place] (1.005-1.030) Urine Protein (NEGATIVE) Urine Glucose (UA) (NEGATIVE) Urine Ketones (NEGATIVE) Urine Occult Blood (NEGATIVE) Urine Nitrite (NEGATIVE) Urine Bilirubin (NEGATIVE) Urine Urobilinogen (0.2-1.0) mg/dL Ur Leukocyte Esterase (NEGATIVE) Urine RBC /HPF Urine WBC (0-5/HPF) /HPF Ur Epithelial Cells (NOT SEEN) /HPF Amorphous Sediment (NOT SEEN) /HPF Urine Bacteria (0-FEW/HPF) /HPF Urine Mucus (NOT SEEN) /LPF Urine HCG, Qual Negative Meds: Medications Generic Name Dose Route Start Last Admin Trade Name Freq PRN Reason Stop Dose Admin Sodium Chloride 10 ml 10/03/19 07:54 10/03/19 08:12 Saline Flush FLUSH 10 ml ASDIRECTED PRN Administration Keep Vein Open Discontinued Medications Generic Name Dose Route Start Last Admin Trade Name Freq PRN Reason Stop Dose Admin Famotidine 20 mg 10/03/19 07:54 10/03/19 08:15 Pepcid IVPUSH 10/03/19 07:55 20 mg ONETIME ONE Administration Sodium Chloride 1,000 mls @ 999 mls/hr 10/03/19 07:52 10/03/19 08:12 Normal Saline IV 10/03/19 08:52 999 mls/hr .BOLUS ONE Administration Iopamidol 100 ml 10/03/19 08:35 10/03/19 09:14 Isovue-300 (61%) IVPUSH 10/03/19 08:36 100 ml ONETIME ONE Administration Ondansetron HCl 4 mg 10/03/19 07:52 10/03/19 08:13 Zofran IV 10/03/19 07:53 4 mg ONETIME ONE Administration - Radiology Interpretation Free Text/Narrative:: CT Abdomen/Pelvis with contrast: FINDINGS: Liver: Normal. No mass. Gallbladder and bile ducts: The gallbladder is again noted to be absent. Pancreas: Normal. No ductal dilation. Spleen: Normal. No splenomegaly. Adrenals: Normal. No mass. Kidneys and ureters: Normal. No hydronephrosis. Stomach and bowel: There are mildly dilated loops of small intestine. The large intestine is filled with fluid rather than stool. There are scattered gas/fluid levels. No intestinal obstruction. Appendix: The appendix is identified and normal in caliber. No evidence of appendicitis. Intraperitoneal space: Unremarkable. No free air. No significant fluid collection. Vasculature: Unremarkable. No abdominal aortic aneurysm. Lymph nodes: Unremarkable. No enlarged lymph nodes. Bladder: Unremarkable as visualized. Reproductive: The uterus is without focal lesion or acute change. Bones/joints: Unremarkable. No acute fracture. Soft tissues: Unremarkable. IMPRESSION: Mild nonspecific changes to the large and small intestine probably represent viral enterocolitis or other infectious enteritis/colitis. Thank you for allowing us to participate in the care of your patient. Dictated and Authenticated by: Stas Asher MD 10/03/2019 9:49 AM Central Time ([place] & [place]) See rad report Departure - Departure Time of Disposition: 09:58 Disposition: Home, Self-Care 01 Condition: Fair Clinical Impression: Gastroenteritis - Discharge Information *PRESCRIPTION DRUG MONITORING PROGRAM REVIEWED*: No *COPY OF PRESCRIPTION DRUG MONITORING REPORT IN PATIENT CINDY: No Instructions: Food Choices to Help Relieve Diarrhea, Adult, Nausea and Vomiting , Adult, [id number], Viral Gastroenteritis, Adult, [id number], Abdominal Pain, Adult, [id number] Forms: ED Department Discharge Additional Instructions: May use imodium (loperamide) over the counter as directed Sips of water as tolerated. Small sips frequently Rest No solid foods until diarrhea and vomiting has subsided May use Tylenol as directed for pain RX: Zofran May use over the counter omeprazole for indigestion Sepsis Event Note - Evaluation Sepsis Screening Result: No Definite Risk - Focused Exam Vital Signs: Vital Signs Temp Pulse Resp BP Pulse Ox 10/03/19 07:33 96.8 F 93 18 125/77 100 Date Exam was Performed: 10/03/19 Time Exam was Performed: 09:52 - My Orders Last 24 Hours: My Active Orders 10/03/19 07:51 Peripheral IV Insertion Adult [OM.PC] Stat 10/03/19 07:52 EKG Documentation Completion [RC] STAT 10/03/19 07:54 Peripheral IV Care [RC] . DIRECTED Sodium Chloride 0.9% [Saline Flush] 10 ml FLUSH ASDIRECTED PRN 10/03/19 08:35 Abdomen Pelvis w Cont [CT] Urgent 10/03/19 08:40 CULTURE URINE [RM] Stat - Assessment/Plan Last 24 Hours: My Active Orders 10/03/19 07:51 Peripheral IV Insertion Adult [OM.PC] Stat 10/03/19 07:52 EKG Documentation Completion [RC] STAT 10/03/19 07:54 Peripheral IV Care [RC] . DIRECTED Sodium Chloride 0.9% [Saline Flush] 10 ml FLUSH ASDIRECTED PRN 10/03/19 08:35 Abdomen Pelvis w Cont [CT] Urgent 10/03/19 08:40 CULTURE URINE [RM] Stat
[2019-10-03] MEDS ORDERED: Sodium Chloride 0.9% 1,000 ML IV ONE (07:52)
[2019-10-03] MEDS ORDERED: Ondansetron 4 MG/2 ML SDV IV ONE (07:52)
[2019-10-03] MEDS ORDERED: Sodium Chloride 0.9% 10 ML Syringe FLUSH PRN (07:54)
[2019-10-03] MEDS ORDERED: Famotidine 20 MG/2 ML SDV IVPUSH ONE (07:54)
[2019-10-03 08:31] LABS: ANION GAP 17.5; CHLORIDE,CL 106 mmol/L (101-111); SODIUM,NA 137 mmol/L (135-145)
[2019-10-03] MEDS ORDERED: Iopamidol 612 MG/ML 100 ML Bottle IVPUSH ONE (08:35)
[2019-10-03] MEDS ORDERED: GI Cocktail Oral Solution 30 ML PO ONE (10:01)
[2019-10-03 10:08] VITALS: BP 112/65; PULSE 65
== END 2019-10-03 10:17 | disposition home or self-care (01) ==
LOC: DL.ED 07:30
DX: K52.9 Noninfective gastroenteritis and colitis, unspecified (principal); Z87.440 Personal history of urinary (tract) infections; Z90.49 Acquired absence of other specified parts of digestive tract
CPT/HCPCS: 36415; 74177; 80053; 81001; 81025; 82150; 83690; 85025; 87086; 93005; 96361; 96374; 96375; 99284; A9270; J2405; J3490; J7030; Q9967

== ENCOUNTER 2021-04-10 08:57 | Inpatient (IN) | payer MEDICAID ==
[2021-04-10] MEDS ORDERED: Acetaminophen/oxyCODONE 325-5 MG Tab PO PRN (09:00)
[2021-04-10] MEDS ORDERED: ceFAZolin 2 GM in Premix Bag 1 BAG IV ONE (09:00)
[2021-04-10] MEDS ORDERED: diphenhydrAMINE 50 MG/ML SDV IVPUSH PRN (09:00)
[2021-04-10] MEDS ORDERED: Ondansetron 4 MG/2 ML SDV IVPUSH PRN (09:00)
[2021-04-10] MEDS ORDERED: Carboprost Tromethamine 250 MCG/1 ML Amp IM PRN (09:00)
[2021-04-10] MEDS ORDERED: Methylergonovine 0.2 MG/1 ML Amp IM PRN (09:00)
[2021-04-10] MEDS ORDERED: Tranexamic Acid 1,000 MG in Sodium Chloride 0.9% 100 ML IV PRN (09:00)
[2021-04-10] MEDS ORDERED: Citric Acid/Sodium Citrate Solution 30 ML Cup PO ONE (09:00)
[2021-04-10] MEDS ORDERED: ePHEDrine 50 MG/ML SDV IVPUSH PRN (09:00)
[2021-04-10] MEDS ORDERED: Oxytocin/Normal Saline 30 UNIT/500 ML BAG IV SCH (09:00)
[2021-04-10] MEDS ORDERED: Naloxone 2 MG/2 ML Syringe IVPUSH PRN (09:00)
[2021-04-10] MEDS ORDERED: Misoprostol 400 MCG (4 X 100 MCG TAB) RECTAL PRN (09:00)
[2021-04-10] MEDS ORDERED: Acetaminophen 325 MG Tab PO PRN (09:00)
[2021-04-10] MEDS ORDERED: Oxytocin/Normal Saline 30 UNIT/500 ML BAG IV ONE (09:16)
[2021-04-10] MEDS: Lactated Ringers 1,000 ML IV SCH ×4 (09:25→22:11)
[2021-04-10] MEDS ORDERED: Oxytocin/Normal Saline 60 UNIT/1,000 ML BAG ONE (10:05)
[2021-04-10] MEDS ORDERED: Citric Acid/Sodium Citrate Solution 30 ML Cup ONE (10:41)
--- NOTE | 2021-04-10 11:02 | OBOUT ---
DATE: 04/10/2021 DATE AND TIME OF NST: 04/10/2021, 9:20 to 9:40. REASON FOR NST: 1. Intrauterine at 39-2/7 weeks, confirmed by 12-3/7-week ultrasound. 2. Three previous C-sections, request repeat low transverse . 3. Group B streptococcus positive. 4. Ultrasound, placental hyperechoic focus, stable and suspect benign. 5. History of COVID positive in September 2020. 6. History of migraine with aura. 7. G5, P3-0-1-3. NST INTERPRETATION: 1. During this time period, heart tone baseline is approximately 120 to 125, at least two 15 x 15 beats per minute acceleration making this strip reactive and reassuring. 2. Tocometer reveals potential 2 to 3 contractions. Blood pressure 141/88, with a proper sized cuff after that 139/65, heart rate between 88 and 90, temperature 99.3, O2 sat 98%. ASSESSMENT/PLAN: 1. Nonstress test, reactive and reassuring. 2. Tocometer with contractions. PLAN: Please see H and P done through [employer]. For this, records were called for, reviewed and supplemented by the patient's history, review of systems reviewed fully and felt to be contributory for what is noted. We will proceed to the OR as soon as crew is ready and available. [facility] /[id number]
[2021-04-10] MEDS ORDERED: ePHEDrine 50 MG/ML SDV IV ONE (11:23)
[2021-04-10] MEDS ORDERED: Ketorolac 30 MG/ML SDV IVPUSH ONE (11:23)
[2021-04-10] MEDS ORDERED: Ondansetron 4 MG/2 ML SDV IV ONE (11:23)
[2021-04-10] MEDS ORDERED: Dexamethasone 4 MG/ML SDV IV ONE (11:23)
[2021-04-10] MEDS ORDERED: Morphine PF 1 MG/ML Amp ITHECAL ONE (11:23)
[2021-04-10] MEDS ORDERED: Lactated Ringers 1,000 ML IV ONE (11:23)
[2021-04-10] MEDS: Ketorolac 30 MG/ML SDV IVPUSH SCH ×2 (17:48→23:57)
[2021-04-10] MEDS: Simethicone 80 MG Tab.Chew PO SCH ×3 (17:59→21:10)
[2021-04-10] MEDS: Prenatal Multivitamin with Calcium/Folic Acid/Iron Tab PO SCH (18:21)
--- NOTE | 2021-04-10 21:08 | OR ---
DATE: 04/10/2021 PREOPERATIVE DIAGNOSES: 1. Intrauterine at 39-2/7 weeks, confirmed by 12-3/7 weeks ultrasound. 2. Three previous sections, requests repeat low transverse section. 3. Transient hypertension with 1 elevated blood pressure upon admission - suspected. 4. Group B Streptococcus positive. 5. Ultrasound revealing placental hyperechoic focus, suspect stable and benign. 6. History of COVID positive in September 2020. 7. History of migraine with aura. 8. 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 9. G5, P3-0-1-3. POSTOPERATIVE DIAGNOSES: 1. Intrauterine at 39-2/7 weeks, confirmed by 12-3/7 weeks ultrasound - delivered. 2. Three previous sections, requests repeat low transverse section. 3. Transient hypertension with 1 elevated blood pressure upon admission - suspected. 4. Group B Streptococcus positive. 5. Ultrasound revealing placental hyperechoic focus, suspect stable and benign. 6. History of COVID positive in September 2020. 7. History of migraine with aura. 8. 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 9. G5, P3-0-1-3. PROCEDURE PERFORMED: Nonstress test followed by repeat low transverse section. PICTURE BOOKER: Nellie Oliver MD ANESTHESIA: Spinal. ESTIMATED BLOOD LOSS: 400 mL. INTRAVENOUS FLUIDS: 1000 mL. URINE OUTPUT: 200 mL and clear. START: 11:40. UTERINE INCISION: 11:44. DELIVERY: 11:45. STOP: 12:03. FINDINGS: Female. scores 9 and 9. Weight pending. DESCRIPTION OF PROCEDURE IN DETAIL: After proper consent obtained, the patient was brought to the operating room where spinal anesthetic was administered. Vega was placed under preop under sterile conditions. Abdomen was prepped and draped in normal sterile fashion. The patient was placed in supine position with left lateral tilt. A skin incision was then made over lower abdomen in transverse Pfannenstiel-type fashion over a previous scar, and this was carried down to the fascia and scored in midline. Subcutaneous tissue was raked laterally with James retractor, and fascial incision was extended in a transverse fashion using curved [place]. Jason clamps x2 used to grasp the superior aspect of fascia and rectus muscles dissected from the fascia using sharp and blunt technique. In a similar fashion, Jason clamps x2 were used to grasp the inferior portion of incision. Rectus pyramidalis muscles were dissected from the fascia using sharp and blunt technique. Rectus muscles were in midline with blunt technique. Abdominal cavity was entered in blunt technique. Incision was extended superiorly and inferiorly with blunt technique. Sebas O large retractor was introduced and used. Vesicouterine peritoneum was identified, incised in transverse fashion with Metzenbaum scissors, and bladder flap was made digitally. A curvilinear incision was made on lower uterine segment. Uterus was entered sharply. Clear fluid returned. Uterine incision was then extended in transverse fashion using blunt technique. vertex was brought up through the incision. Vacuum was called for. There was a potential for anticipated issues; however, by the time vacuume was out on the operative field, vertex was delivered and rest of the infant delivered without difficulty. Mouth and nares were suctioned. Cord was doubly clamped and cut, and infant was brought over to team. Then, approximately 10 mL of cord blood was obtained for labs. Placenta was then delivered with gentle cord traction and fundal massage. Uterine cavity was then cleared of all blood clots and debris with lap sponge. Guevara clamps were then used to grasp the uterine incision. This was closed in a running locked fashion and tied at lateral margins with 1-0 Vicryl. Left of midline, there was mild bleeding. One wbraub-bt-oeceu stitch was applied, and hemostasis reassured. First inspection of the uterine incision revealed hemostasis. Sebas O retractor was then removed, and paracolic gutters were then cleared of all blood clots, debris, and lap sponge. Anterior cul-de-sac was irrigated copiously. All blood clots and debris removed. Second and final inspection of the uterine incision and anterior cul-de-sac revealed hemostasis. Rectus muscles were then reapproximated in midline with [id number]-[id number] stitch using 1-0 Vicryl. Subfascial tissues were found to be hemostatic, and fascia was closed in running fashion and tied at lateral margins with 0 looped PDS. Subcutaneous tissue was irrigated copiously. Hemostasis reassured. Skin was reapproximated with medium farooq. Sterile Aquacel dressing applied. Uterine fundus was firm and massaged at the conclusion of the case, -1 below umbilicus. No immediate complications were noted. Sponge, lap, and needle counts were correct. The patient received 2 g of Ancef preoperatively, Pitocin per protocol, and received Toradol at the occlusion of case for pain control. Mother and infant are currently stable at the time of dictation. placenta reviewed after case completed and notable for some calcifications and no lesions otherwise seen. [facility] /[id number] [facility]
[2021-04-11] MEDS: Acetaminophen/oxyCODONE 325-5 MG Tab PO PRN ×5 (05:40→22:39)
[2021-04-11] MEDS: Ketorolac 30 MG/ML SDV IVPUSH SCH (05:54)
[2021-04-11] MEDS: Docusate Sodium 100 MG Cap PO PRN ×2 (08:39→22:39)
[2021-04-11] MEDS: Prenatal Multivitamin with Calcium/Folic Acid/Iron Tab PO SCH (08:39)
[2021-04-11] MEDS: Simethicone 80 MG Tab.Chew PO SCH ×4 (08:39→22:38)
--- NOTE | 2021-04-11 09:58 | PN ---
DATE: 04/11/2021 Postop day #1, status post repeat low transverse . SUBJECTIVE: The patient is tolerating p.o., is ambulating. Vega just removed. Pain is under control. Bleeding is under control per her. OBJECTIVE: Vital Signs: Temperature afebrile, heart rate 88, blood pressure 118/65, respiratory rate 16. Lungs: Clear to auscultation bilaterally. Heart: S1, S2. Regular rate and rhythm. Abdomen: Firm uterus around the umbilicus. Aquacel dressing appears dry and intact. Extremities: SCDs and ZEE hose are on. LABORATORY DATA: White cell count 11.9, hemoglobin 9.7 compared to predelivery hemoglobin of 11.7 and platelets stable at 227. ASSESSMENT: 1. Postoperative day #1, status post repeat low transverse . 2. Anemia of acute blood loss. Hemoglobin dropping down to 9.7, currently asymptomatic. Vital signs are stable. Urine output was reviewed and adequate. PLAN: We will continue to follow clinically and closely. The patient understands and agrees with above treatment plan. Please see orders for further details as well. [facility] /[id number] MTDD
[2021-04-11] MEDS: Ibuprofen 800 MG Tab PO PRN ×2 (14:05→22:38)
[2021-04-12] MEDS: Acetaminophen/oxyCODONE 325-5 MG Tab PO PRN ×4 (02:33→20:51)
[2021-04-12] MEDS: Ibuprofen 800 MG Tab PO PRN ×2 (06:54→16:19)
[2021-04-12] MEDS: Simethicone 80 MG Tab.Chew PO SCH ×4 (09:11→20:51)
[2021-04-12] MEDS: Prenatal Multivitamin with Calcium/Folic Acid/Iron Tab PO SCH (09:11)
[2021-04-12] MEDS: Docusate Sodium 100 MG Cap PO PRN ×2 (09:11→20:51)
[2021-04-12] MEDS ORDERED: diphenhydrAMINE 25 MG Tab PO ONE (09:25)
--- NOTE | 2021-04-12 15:30 | PN ---
DATE: 04/12/2021 Postop day #2, status post repeat low transverse . SUBJECTIVE: The patient is tolerating p.o.; is ambulating, urinating, passing flatus. She did have some tongue swelling earlier today, took some Benadryl and is feeling better. Nurses did not note any significant swelling during this time. OBJECTIVE: Vital Signs: Reviewed through [employer]. No immediate concerns are noted. Appearance: Sitting up in the bed, holding baby. Lungs: Clear to auscultation bilaterally. Heart: S1, S2. Regular rate and rhythm. Abdomen: Firm uterus -1 below umbilicus. Aquacel dressing. Does have some shadowing along the length of it and it is trace. Nothing increasing in size around this. EXTREMITIES: Trace peripheral edema. No calf pain. ASSESSMENT AND PLAN: 1. Postop day #2, status post repeat low transverse section. 2. Anemia of acute blood loss. Hemoglobin dropping from 11.7 to 9.7, which was noted yesterday. No symptoms. Vital signs are stable. Continue to follow clinically and closely. Possible discharge tomorrow. Discussed. [facility] /[id number]
[2021-04-13] MEDS: Acetaminophen/oxyCODONE 325-5 MG Tab PO PRN ×3 (00:59→09:22)
[2021-04-13] MEDS: Ibuprofen 800 MG Tab PO PRN ×2 (01:00→08:51)
--- NOTE | 2021-04-13 07:46 | DISCH ---
ADMITTING DIAGNOSES: 1. Intrauterine at 39 and 2/7 weeks, confirmed with 12 and 3/7 weeks ultrasound. 2. Previous x3, requests repeat low transverse . 3. GBS positive. 4. Placental hyperechoic focus on ultrasound, stable and suspect benign. 5. History of coronavirus disease positive test in September 2020. 6. History of migraine disorder. 7. Cytomegalovirus and Guillain-[place] syndrome with previous in 2016. 8. G5, P3-0-1-3. DISCHARGE DIAGNOSES: 1. Intrauterine at 39 and 2/7 weeks, confirmed with 12 and 3/7 weeks ultrasound - delivered. 2. Previous x3, request repeat low transverse . 3. GBS positive. 4. Placental hyperechoic focus on ultrasound, stable and suspect benign. 5. History of coronavirus disease positive test in September 2020. 6. History of migraine disorder. 7. Cytomegalovirus and Guillain-[place] syndrome with previous in 2016. 8. G5, P3-0-1-3. 9. Anemia of acute blood loss. Hemoglobin dropping from 11.7 to 9.7. PROCEDURE PERFORMED: Nonstress test followed by repeat low transverse C- section. Procedure performed by Fredy Redmond MD. HISTORY OF PRESENT ILLNESS: Please see H and P. SUMMARY OF HOSPITAL COURSE: The patient was admitted on the above date with above diagnosis, underwent repeat low transverse under spinal anesthesia with an EBL of 400 mL yielding a female with score of 9 and 9, weighing 8 pounds 2 ounces (3680 g). Please see op report for further details. Postop day #1 and #2, please see progress note. Postop day #3, date of discharge, the patient is tolerating p.o., is ambulating, urinating, passing flatus, requesting discharge. PHYSICAL EXAMINATION: Vital Signs: Last set of vitals, temperature 97.2, heart rate 84, blood pressure 122/64, respiratory rate 19. Lungs: Clear to auscultation bilaterally. No increased work of breathing. Heart: S1, S2. Regular rate and rhythm. Abdomen: Firm uterus. -2 below umbilicus. Aquacel dressing was removed this morning and incision appears dry and intact with mild shelving. No active drainage. We will reapply new Aquacel dressing before discharge. Extremities: Trace pedal edema. No calf pain. CONDITION ON DISCHARGE COMPARED TO CONDITION ON ADMISSION: Improved. DISCHARGE INSTRUCTIONS: 1. Diet as tolerated. 2. Activity: No lifting more than 20 pounds. No sit-ups, straining, pelvic rest for next 6 weeks with immediate return to fertility discussed with the patient. 3. Reasons to return or go to the emergency room were discussed with the patient including but not limited to, temperature greater than 100.4, foul- smelling discharge, red or tender breasts, or increased vaginal bleeding or increasing pain, drainage or redness surrounding the incision. DISCHARGE MEDICATIONS: 1. Ywor-hcz-ltzalgd ibuprofen for pain. 2. Iron sulfate 325 b.i.d. x6 weeks. 3. Percocet 5/325 1 to 2 q.6 hours p.r.n., #20, no refills. 4. Colace 100 mg b.i.d. p.r.n., #60, no refills. FOLLOWUP: On 04/17/2021 for staple removal, and we will also be following up with her baby at that time. Did discuss the importance of followup and ramifications of not doing so as well as reasons to go to emergency room in regard to her baby. Please see discharge paperwork for further details. [facility] /[id number]
[2021-04-13] MEDS: Simethicone 80 MG Tab.Chew PO SCH (08:50)
[2021-04-13] MEDS: Prenatal Multivitamin with Calcium/Folic Acid/Iron Tab PO SCH (08:50)
[2021-04-13] MEDS: Docusate Sodium 100 MG Cap PO PRN (08:50)
[2021-04-13 09:18] VITALS: BP 137/63; PULSE 87
== END 2021-04-13 10:48 | disposition home or self-care (01) | DRG 787 ==
LOC: DL.OB 08:57 → OBSVTOIN 08:57
PROVIDERS: ADMIT Family Medicine; ATTEND Family Medicine
PROC: 10D00Z1 Extraction of Products of Conception, Low, Open Approach (ICD-10-PCS; principal; 2021-04-10)
DX: O34.211 Maternal care for low transverse scar from previous cesarean delivery (principal); D62 Acute posthemorrhagic anemia; G61.0 Guillain-Barre syndrome; O99.02 Anemia complicating childbirth; O13.4 Gestational [pregnancy-induced] hypertension without significant proteinuria, complicating childbirth; Z20.822 Contact with and (suspected) exposure to COVID-19; Z37.0 Single live birth; Z3A.39 39 weeks gestation of pregnancy; Z86.16 Personal history of COVID-19; Z28.82 Immunization not carried out because of caregiver refusal
CPT/HCPCS: 01961; 36415; 59025; 85027; 86850; 86900; 86901; A9270-GY; J0690; J1100; J1885; J2274; J2405; J2590; J7120; U0002

== ENCOUNTER 2021-10-04 18:38 | Emergency (ER) | payer MEDICAID, OTHER ==
[2021-10-04 19:38] VITALS: BP 132/68; PULSE 102
== END 2021-10-04 20:00 | disposition left against medical advice (07) ==
LOC: DL.ED 18:38
DX: Z53.21 Procedure and treatment not carried out due to patient leaving prior to being seen by health care provider (principal)

== ENCOUNTER 2022-02-17 09:55 | Emergency (ER) | payer MEDICAID ==
[2022-02-17] MEDS ORDERED: Sodium Chloride 0.9% 10 ML Syringe FLUSH PRN (10:19)
[2022-02-17 10:20] VITALS: BP 135/74; PULSE 84
[2022-02-17] MEDS ORDERED: Ondansetron 4 MG/2 ML SDV IVPUSH ONE (10:20)
[2022-02-17] MEDS ORDERED: HYDROmorphone 0.5 MG/0.5 ML Syringe IVPUSH ONE (10:21)
[2022-02-17 11:17] LABS: ANION GAP 14.3 mEq/L (7-13); CHLORIDE,CL 103 mmol/L (98-107); SODIUM,NA 138 mmol/L (136-145)
[2022-02-17] MEDS ORDERED: GI Cocktail Oral Solution 30 ML PO ONE (11:17)
[2022-02-17] MEDS ORDERED: Iopamidol 612 MG/ML 100 ML Bottle IVPUSH ONE (11:27)
== END 2022-02-17 12:27 | disposition home or self-care (01) ==
LOC: DL.ED 09:55
DX: K21.9 Gastro-esophageal reflux disease without esophagitis (principal); Z86.16 Personal history of COVID-19; Z90.49 Acquired absence of other specified parts of digestive tract; Z20.822 Contact with and (suspected) exposure to COVID-19
CPT/HCPCS: 36415; 74177; 80053; 81003; 83605; 83690; 83735; 84443; 84703; 85025; 86140; 87635; 96374; 96375; 99284; A9270; J1170; J2405; J3490; Q9967; U0002

== ENCOUNTER 2022-10-08 15:16 | Emergency (ER) | payer MEDICAID ==
[2022-10-08 15:43] VITALS: BP 143/90; PULSE 121
[2022-10-08 16:20] LABS: CORONAVIRUS COVID-19 NAA NEGATIVE (NEGATIVE); RESPIRATORY SYNCYTIAL VIR NAA NEGATIVE (NEGATIVE)
== END 2022-10-08 16:08 | disposition home or self-care (01) ==
LOC: DL.ED 15:16
DX: J02.0 Streptococcal pharyngitis (principal); Z20.822 Contact with and (suspected) exposure to COVID-19
CPT/HCPCS: 0241U; 87430; 99283

== ENCOUNTER 2025-01-02 11:16 | Emergency (ER) | payer MEDICAID ==
[2025-01-02 11:34] VITALS: BP 131/73; PULSE 113
[2025-01-02] MEDS: Ibuprofen 800 MG Tab PO ONE (11:39)
[2025-01-02] MEDS: Acetaminophen 500 MG Tab PO ONE (11:39)
== END 2025-01-02 11:59 | disposition home or self-care (01) ==
LOC: DL.ED 11:16
DX: J02.0 Streptococcal pharyngitis (principal); Z79.899 Other long term (current) drug therapy; Z86.16 Personal history of COVID-19
CPT/HCPCS: 87428; 87430; 99283; A9270

== ENCOUNTER 2025-03-08 12:51 | Emergency (ER) | payer MEDICAID ==
[2025-03-08 13:16] VITALS: PULSE 78
[2025-03-08] MEDS: Ondansetron 4 MG Tab.DIS PO ONE (13:29)
[2025-03-08] MEDS: GI Cocktail Oral Solution 30 ML PO ONE (13:29)
[2025-03-08] MEDS ORDERED: Sodium Chloride 0.9% 10 ML Syringe FLUSH PRN (13:54)
[2025-03-08 14:08] LABS: BASOPHILS PERCENT AUTO 0.2 % (0.0-1.0); EOSINOPHILS PERCENT AUTO 1.4 % (1.0-3.0); HEMOGLOBIN 13.8 g/dL (12.0-16.0); LYMPHOCYTES PERCENT AUTO 15.7 % (20.5-50.1); MEAN CORPUSCULAR HEMOGLOBIN 26.6 pg (27.0-34.0); MEAN CORPUSCULAR HGB CONC 32.9 g/dL (33.0-35.0); MEAN CORPUSCULAR VOLUME 80.9 fL (80-100); MONOCYTES PERCENT AUTO 4.4 % (2-8); NEUTROPHILS PERCENT AUTO 78.3 % (42.2-75.2); PLATELET COUNT,PLT 361 10^3/uL (150-450); RED BLOOD CELL COUNT 5.19 10^6/uL (4.2-5.4); WHITE BLOOD CELL COUNT,WBC 16.4 10^3/uL (5.0-10.0)
[2025-03-08] MEDS: Ketorolac 30 MG/ML SDV IVPUSH ONE (14:08)
[2025-03-08 14:11] VITALS: BP 124/67
[2025-03-08 14:23] LABS: APPEARANCE,URINE CLEAR (CLEAR); BILIRUBIN,URINE NEGATIVE (NEGATIVE); COLOR,URINE YELLOW (YELLOW); GLUCOSE,URINE NEGATIVE (NEGATIVE); KETONES,URINE 80 (NEGATIVE); LEUKOCYTE ESTERASE,URINE NEGATIVE (NEGATIVE); NITRITE,URINE NEGATIVE (NEGATIVE); OCCULT BLOOD,URINE TRACE-INTACT (NEGATIVE); PROTEIN,URINE 100 (NEGATIVE); UROBILINOGEN,URINE 0.2 mg/dL (0.2-1.0)
[2025-03-08 14:31] LABS: A/G RATIO 0.9; ALANINE AMINOTRANSFERASE,ALT 92 U/L (14-59); ALBUMIN 4.2 g/dL (3.4-5.0); ALKALINE PHOSPHATASE 149 U/L (46-116); ANION GAP 17.9 mEq/L (7-13); ASPARTATE AMNIOTRANSFERASE,AST 74 U/L (15-37); BILIRUBIN TOTAL 0.7 mg/dL (0.2-1.0); BLOOD UREA NITROGEN,BUN 16 mg/dL (7-18); BUN/CREATININE RATIO 23.2 (No establ ref range); CALCIUM 9.5 mg/dL (8.5-10.1); CARBON DIOXIDE,CO2 21 mmol/L (21-32); CHLORIDE,CL 101 mmol/L (98-107); CREATININE 0.69 mg/dL (0.55-1.02); EST CRCL DRUG DOSING (CG) 96.83 mL/min; GLUCOSE RANDOM 129 mg/dL (70-99); LIPASE 32 U/L (16-77); MAGNESIUM 1.7 mg/dL (1.8-2.4); POTASSIUM,K 3.9 mmol/L (3.5-5.1); PROTEIN TOTAL,TP 8.8 g/dL (6.4-8.2); SODIUM,NA 136 mmol/L (136-145)
[2025-03-08 14:33] LABS: C-REACTIVE PROTEIN < 0.50 ng/dL (<=0.50); ESTIMATED GFR 118 mL/min (>=60)
[2025-03-08 14:38] LABS: BACTERIA,URINE MODERATE /HPF (0-FEW/HPF); RBC,URINE 0-5 /HPF (0-5)
[2025-03-08 14:39] LABS: EPITHELIAL CELLS,URINE MODERATE /HPF (NOT SEEN); MUCUS,URINE FEW /LPF (NOT SEEN)
== END 2025-03-08 15:19 | disposition home or self-care (01) ==
LOC: DL.ED 12:51
DX: K52.9 Noninfective gastroenteritis and colitis, unspecified (principal); Z86.16 Personal history of COVID-19; Z90.49 Acquired absence of other specified parts of digestive tract; Z79.899 Other long term (current) drug therapy
CPT/HCPCS: 36415; 76705; 80053; 81001; 81025; 83690; 83735; 85025; 86140; 96374; 99284; A9270; J1885